=== PATIENT | male | born 1980 | race Hispanic/Latino ===

== ENCOUNTER 2017-08-16 18:46 | Emergency (ER) | payer BC ==
[2017-08-16 18:56] VITALS: BP 161/97; PULSE 84; RESP 18; TEMP 98.5; O2SAT 99
[2017-08-16] MEDS ORDERED: Lidocaine 1% Inj (20ml) INFIL ONE (19:01)
[2017-08-16] MEDS ORDERED: Lidocaine 1% Inj (20ml) ONE (19:18)
--- NOTE | 2017-08-16 19:23 | C.PDOC ---
History Of Present Illness 36 y/o male presents to ED for evaluation of laceration sustained to left thumb prior to arrival. Patient states he was pushing garbage down and sustained laceration with a can of cat food. Patient denies tingling, numbness or any other complaints at this time. Patient is not UTD with tetanus vaccine. Time Seen by Provider: 08/16/17 18:59 Chief Complaint (Nursing): Abnormal Skin Integrity History Per: Patient History/Exam Limitations: no limitations Onset/Duration Of Symptoms: Mins Current Symptoms Are (Timing): Still Present Location Of Injury: Left: Hand Past Medical History Reviewed: Historical Data, Nursing Documentation, Vital Signs Vital Signs: Last Vital Signs Temp 98.5 F 08/16/17 18:54 Pulse 84 08/16/17 18:54 Resp 18 08/16/17 18:54 BP 161/97 H 08/16/17 18:54 Pulse Ox 99 08/16/17 19:43 - Medical History PMH: No Chronic Diseases Surgical History: No Surg Hx Family History: States: No Known Family Hx - Social History Hx Alcohol Use: Yes Hx Substance Use: No - Immunization History Hx Tetanus Toxoid Vaccination: No Hx Influenza Vaccination: No Hx Pneumococcal Vaccination: No Review Of Systems Gastrointestinal: Negative for: Nausea, Vomiting Musculoskeletal: Positive for: Hand Pain Skin: Negative for: Rash Neurological: Negative for: Weakness, Numbness Physical Exam - Physical Exam Appears: Non-toxic, No Acute Distress Skin: Warm, Dry, No Rash, Other (1.5 cm laceration to left thumb volar surface) Head: Atraumatic, Normacephalic Eye(s): bilateral: Normal Inspection Neck: Normal ROM Chest: Symmetrical Extremity: Normal ROM, Capillary Refill (<2 seconds), No Deformity Pulses: Left Radial: Normal Neurological/Psych: Oriented x3, Normal Speech, Normal Motor, Normal Sensation ED Course And Treatment O2 Sat by Pulse Oximetry: 99 (RA) Pulse Ox Interpretation: Normal Laceration - Laceration Repair left thumb Wound Length (In cm): 1.5 Description Of Wound: Linear Wound Cleansed With: Betadine, Sterile Saline Anesthesia: Lidocaine 1% Wound Examination: Irrigated With Saline, No FB With Wound Exploration, No Tendon Injury With Wound Exploration Wound Closure: Suture (3) Suture Technique And Material Used: Interrupted, Nylon (4-O) Wound Complexity: Simple Medical Decision Making Medical Decision Making: Impression: Laceration Plan: Laceration repair by PA Wound dressed with bacitracin and gauze. Patient instructed on wound care and to follow up for suture removal in 10 days Disposition Counseled Patient/Family Regarding: Diagnosis, Need For Followup, Rx Given - Disposition Disposition: HOME/ ROUTINE Disposition Time: 19:42 Condition: GOOD Additional Instructions: Keep area clean and dry. May wash gently with soap and water, do not use alcohol or iodine solution. Change dressing 1-2 times daily. Return to ER if fever occurs, redness or swelling around wound, pus in the wound. Please follow up with your primary doctor, clinic, or urgent care for suture removal in 10 days Instructions: Care For Your Stitches (ED) Forms: [employer] (Y[place]i) - POA Present On Arrival: None - Clinical Impression Clinical Impression: Finger laceration - PA / SYSTEM INTEGRATION ENGINEER / Resident Statement MD/DO has reviewed & agrees with the documentation as recorded. - Scribe Statement The provider has reviewed the documentation as recorded by the Brittaniibgayatri Lei All medical record entries made by the Raul were at my direction and personally dictated by me. I have reviewed the chart and agree that the record accurately reflects my personal performance of the history, physical exam, medical decision making, and the department course for this patient. I have also personally directed, reviewed, and agree with the discharge instructions and disposition.
[2017-08-16] MEDS ORDERED: Bacitracin 500 Units/gm Oint Foilpak UD ONE (19:53)
== END 2017-08-16 20:07 | disposition home or self-care (01) ==
LOC: C.ER 18:46
DX: S61.012A Laceration without foreign body of left thumb without damage to nail, initial encounter (principal); W26.8XXA Contact with other sharp object(s), not elsewhere classified, initial encounter; Y93.E9 Activity, other interior property and clothing maintenance; Y92.89 Other specified places as the place of occurrence of the external cause; Z23 Encounter for immunization